=== PATIENT | male | born 1980 | race Caucasian/White ===

== ENCOUNTER → 2020-11-29 | Outpatient (CLI) | payer OTHER ==
[~2020-11-29] MED LIST: LIAL1.2T PO; QC A PO; VITMTA PO
== END ==
LOC: M LABSMTC 09:39
PROVIDERS: ATTEND Anesthesiology
DX: Z11.52 Encounter for screening for COVID-19 (principal)

== ENCOUNTER 2020-12-04 10:53 | Day surgery (SDC) | payer OTHER ==
[~2020-12-04] VITALS: Ht 172.7 cm; Wt 103.4 kg
[~2020-12-04 10:53] MED LIST changes: +NS 1,000 ML IV ONE
[2020-12-04] MEDS ORDERED: propofoL 200 MG/20 ML VIAL As Ordered ONE (11:31)
[2020-12-04] MEDS ORDERED: fentaNYL 100 MCG/2 ML INJECTION (J3010) As Ordered ONE (11:31)
[2020-12-04] MEDS ORDERED: LIDOCAINE 2% 100MG/5ML SDV (FOR ANES.) As Ordered ONE (11:31)
--- NOTE | 2020-12-04 11:53 | ROOR ---
Patient Name: Francois Bermeo Procedure Date: 12/04/2020 11:39 AM Date of : 1980 Age: 40 Room: [facility] Gender: Male Note Status: Finalized Procedure: Upper Endoscopy + Biopsies Indications: Heartburn, Exclusion of Smith's esophagus Providers: Srikanth Coffey MD Referring MD: Darron Hoffmann Requesting Provider: Medicines: Monitored Anesthesia Care Complications: No immediate complications. Procedure: Pre-Anesthesia Assessment: - The heart rate, respiratory rate, oxygen saturations, blood pressure, adequacy of pulmonary ventilation, and response to care were monitored throughout the procedure. The Endoscope was introduced through the mouth, and advanced to the second part of duodenum. The upper GI endoscopy was accomplished without difficulty. The patient tolerated the procedure well. Findings: The Z-line was irregular and was found 40 cm from the incisors. Multiple biopsies were obtained with cold forceps for evaluation to rule out Smith's Esophagus randomly at the gastroesophageal junction. Localized moderate inflammation characterized by erosions, erythema, friability, linear erosions and shallow ulcerations was found on the greater curvature of the stomach. Biopsies were taken with a cold forceps for Helicobacter pylori testing. The exam of the duodenum was otherwise normal. Impression: - Z-line irregular, 40 cm from the incisors. - Mucosal changes suspicious for gastritis. Biopsied. - Multiple biopsies were obtained at the gastroesophageal junction. - The examination was otherwise normal. Recommendation: - Patient has a contact number available for emergencies. The signs and symptoms of potential delayed complications were discussed with the patient. Return to normal activities tomorrow. Written discharge instructions were provided to the patient. - High fiber diet. - Discharge patient to home. - Follow an antireflux regimen. - Use Prilosec (omeprazole) 40 mg PO daily. - Await pathology results. - Telephone GI clinic for pathology results in 1 week. - Repeat upper endoscopy for surveillance based on pathology results. - The findings and recommendations were discussed with the patient's family. Procedure Code(s): --- Professional --- 29888, Esophagogastroduodenoscopy, flexible, transoral; with biopsy, single or multiple Diagnosis Code(s): --- Professional --- K22.8, Other specified diseases of esophagus K31.89, Other diseases of stomach and duodenum R12, Heartburn CPT copyright 2019 [employer]. All rights reserved. The codes documented in this report are preliminary and upon telemarketing agent review may be revised to meet current compliance requirements. Srikanth Coffey MD Srikanth Coffey MD 12/04/2020 11:52:51 AM Electronically signed by Srikanth Coffey MD Number of Addenda: 0 Note Initiated On: 12/04/2020 11:39 AM Estimated Blood Loss: Estimated blood loss: none.
--- NOTE | 2020-12-04 12:08 | ROOR ---
Patient Name: Francois Bermeo Procedure Date: 12/04/2020 11:40 AM Date of : 1980 Age: 40 Room: [facility] Gender: Male Note Status: Finalized Procedure: Total Colonoscopy to Cecum + ileoscopy + Bx Indications: Ulcerative colitis, Follow-up of ulcerative colitis Providers: Srikanth Coffey MD Referring MD: Darron Hoffmann Requesting Provider: Medicines: Monitored Anesthesia Care Complications: No immediate complications. Procedure: Pre-Anesthesia Assessment: - The heart rate, respiratory rate, oxygen saturations, blood pressure, adequacy of pulmonary ventilation, and response to care were monitored throughout the procedure. The Colonoscope was introduced through the anus and advanced to the terminal ileum, with identification of the appendiceal orifice and IC valve. The colonoscopy was performed without difficulty. The patient tolerated the procedure well. The quality of the bowel preparation was excellent. Findings: The perianal and digital rectal examinations were normal. No other significant abnormalities were identified in a careful examination of the remainder of the colon. The terminal ileum appeared normal. Background biopsies were taken for histology with a cold forceps from the ascending colon, transverse colon, descending colon and rectosigmoid colon. These biopsy specimens were sent to Pathology. The exam was otherwise without abnormality on direct and retroflexion views. Impression: - The examined portion of the ileum was normal. - The examination was otherwise normal on direct and retroflexion views. - Background biopsies were taken from the ascending colon, transverse colon, descending colon and rectosigmoid colon. - The exam was otherwise normal to the cecum. Recommendation: - Patient has a contact number available for emergencies. The signs and symptoms of potential delayed complications were discussed with the patient. Return to normal activities tomorrow. Written discharge instructions were provided to the patient. - High fiber diet. - Discharge patient to home. - Continue present medications. - Await pathology results. - Telephone GI clinic for pathology results in 1 week. - Repeat colonoscopy in 5 years for surveillance based on pathology results. - Return to referring physician. - The findings and recommendations were discussed with the patient's family. Procedure Code(s): --- Professional --- 23796, Colonoscopy, flexible; with biopsy, single or multiple Diagnosis Code(s): --- Professional --- K51.90, Ulcerative colitis, unspecified, without complications CPT copyright 2019 [employer]. All rights reserved. The codes documented in this report are preliminary and upon promotions team leader review may be revised to meet current compliance requirements. Srikanth Coffey MD Srikanth Coffey MD 12/04/2020 12:08:10 PM Electronically signed by Srikanth Coffey MD Number of Addenda: 0 Note Initiated On: 12/04/2020 11:40 AM Estimated Blood Loss: Estimated blood loss: none.
[2020-12-04 12:36] VITALS: BP 133/84
== END 2020-12-04 12:37 | disposition home or self-care (01) ==
LOC: M OPP 10:53
PROVIDERS: ATTEND Internal Medicine Gastroenterology
DX: K51.90 Ulcerative colitis, unspecified, without complications (principal); K22.8 Other specified diseases of esophagus; K31.89 Other diseases of stomach and duodenum; R12 Heartburn; K21.9 Gastro-esophageal reflux disease without esophagitis; K63.89 Other specified diseases of intestine; Z79.899 Other long term (current) drug therapy; Z88.0 Allergy status to penicillin
CPT/HCPCS: 43239; 45380; 88305; J3010

== ENCOUNTER → 2023-09-21 | Outpatient (CLI) | payer OTHER ==
[~2023-09-21] MED LIST changes: -NS 1,000 ML IV ONE
== END ==
LOC: M SOG 08:03
PROVIDERS: ATTEND Physician Assistant
DX: M79.631 Pain in right forearm (principal); M25.531 Pain in right wrist

== ENCOUNTER 2024-04-17 11:32 | Day surgery (SDC) | payer BC ==
[~2024-04-17] VITALS: Ht 172.7 cm; Wt 104.3 kg
[~2024-04-17 11:32] MED LIST changes: +ALL10TAB3 PO; +EQL50TAB2 PO; +OMEG10002 PO; +OMEP40CA5 PO; +THERTAB52 PO; +VITA100093 PO
[2024-04-17] MEDS ORDERED: propofoL 200 MG/20 ML VIAL As Ordered ONE (12:49)
[2024-04-17] MEDS ORDERED: LIDOCAINE 2% 100MG/5ML SDV (FOR ANES.) As Ordered ONE (12:49)
[2024-04-17 13:15] VITALS: TEMP 97.5
[2024-04-17 13:29] VITALS: BP 123/69; O2SAT 99
== END 2024-04-17 13:42 | disposition home or self-care (01) ==
LOC: M OPP 11:32
PROVIDERS: ATTEND Internal Medicine Gastroenterology
DX: K51.40 Inflammatory polyps of colon without complications (principal); K51.00 Ulcerative (chronic) pancolitis without complications; K64.0 First degree hemorrhoids; K21.9 Gastro-esophageal reflux disease without esophagitis; Z88.0 Allergy status to penicillin; Z79.899 Other long term (current) drug therapy